=== PATIENT | male | born 1980 | race Caucasian/White ===

== ENCOUNTER 2017-10-21 10:18 | Inpatient (IN) | payer MEDICAID ==
[2017-10-21] MEDS ORDERED: Sodium Chloride 0.9% 1,000 ML IV ONE (10:50)
--- NOTE | 2017-10-21 10:59 | ED Physician Chart ---
ED Chief Complaint/HPI - Patient Information Date Seen:: 10/21/17 Time Seen:: 10:30 Chief Complaint:: Left Foot Pain History of Present Illness:: onset x 3 days of left foot pain, paresthesias, redness, and swelling around a non-healing wound; pt's last tetanus shot: > 5 years; hx of IDDM; pt denies H/As , S/T, neck pain, C/P, SOB, Abd. pain,A/N/V/D/C, fever, chills, or urinary s/s Allergies:: Allergies Allergy/AdvReac Type Severity Reaction Status Date / Time No Known Allergies Allergy Verified 10/21/17 10:34 Vitals:: Vital Signs - 8 hr 10/21/17 10:39 Temp 98.4 F HR 101 RR 16 BP 147/103 O2 Sat % 100 Historian:: Patient Review:: Nurse's Note Reviewed ED Review of Systems - Review of Systems General/Constitutional: No fever, No chills, No weight loss, No weakness, No diaphoresis, No edema, No loss of appetite Skin: Skin lesions, No rash, No bruising Head: No headache, No light-headedness Eyes: No loss of vision, No pain, No diplopia ENT: No earache, No nasal drainage, No sore throat, No tinnitus Neck: No neck pain, No swelling, No thyromegaly, No stiffness, No mass noted Cardio Vascular: No chest pain, No palpitations, No PND, No orthopnea, No edema Pulmonary: No SOB, No cough, No sputum, No wheezing GI: No nausea, No vomiting, No diarrhea, No pain, No melena, No hematochezia, No constipation, No hematemesis G/U: No dysuria, No frequency, No hematuria, No nacturia Musculoskeletal: No bone or joint pain, No back pain, No muscle pain Endocrine: Polyuria, Polydipsia Psychiatric: No prior psych history, No depression, No anxiety, No suicidal ideation, No homicidal ideation, No auditory hallucination, No visual hallucination Hematopoietic: No bruising, No lymphadenopathy Allergic/Immuno: No urticaria, No angioedema Neurological: No syncope, No focal symptoms, No weakness, No paresthesia, No headache, No seizure, No dizziness, No confusion, No vertigo ED Past Medical History - Past Medical History Obtainable: Yes Past Medical History: DM Family History: Diabetes Melitus, HTN Social History: Non Smoker, No Alcohol, No Drug Use, Single Surgical History: None Psychiatricy History: None Medication: Reviewed Family Medical History - Family Member Mother History Unknown: Yes ED Physical Exam - Physical Examination General/Constitutional: Awake, Well-developed, well-nourished, Alert, No distress, GCS 15, Non-toxic appearing, Ambulatory Head: Atraumatic Eyes: Lids, conjuctiva normal, PERRL, EOMI Skin: Nl inspection, No rash, No skin lesions, No ecchymosis, Well hydrated, No lymphadenopathy Other Skin comments:: Left Foot Wound and Cellulitis ENMT: External ears, nose nl, TM canals nl, Nasal exam nl, Lips, teeth, gums nl , Oropharynx nl, Tonsils nl Neck: Nontender, Full ROM w/o pain, No JVD, No nuchal rigidity, No bruit, No mass, No stridor Respiratory: Nl effort/Exclusion, Clear to Auscultation, No Wheeze/Rhonchi/Rales Cardio Vascular: RRR, No murmur, gallop, rubs, NL S1 S2, Carotid/Femoral/Distal pulses equal bilaterally GI: No tenderness/rebounding/guarding, No organomegaly, No hernia, Normal BS's, Nondistended, No mass/bruits, No McBurney tenderness : No CVA tenderness Extremities: No tenderness or effusion, Full ROM, normal strength in all extremities, No edema, Normal digits & nails Neuro/Psych: Alert/oriented, DTR's symmetric, Normal sensory exam, Normal motor strength, Judgement/insight normal, Mood normal, Normal gait, No focal deficits Misc: Normal back, No paraspinal tenderness ED Labs/Radiology/EKG Results - Lab Results Comments:: WBC: 11.8; Na+: 125; Glucose: 269 - EKG Interpretations EKG Time:: 10:55 Rate & Rhythm: 89; NSR Comments:: non-specific st-t changes ED Septic Shock - . Is Septic Shock (SBP<90, OR Lactate>4 mmol\L) present?: No - <6hrs of presentation: Vital Signs: Vital Signs - 8 hr 10/21/ 10:39 Temp 98.4 F HR 101 RR 16 BP 147/103 O2 Sat % 100 ED Reassessment (Disposition) - Reassessment Reassessment Condition:: Improved - Diagnosis Diagnosis:: Dx: Left Foot Wound; Cellulitis; DM; Hyponatremia; Sepsis; Leukocytosis; Hyperglycemia - Aftercare/Follow up Instructions Aftercare/Follow-Up Instructions:: Counseled pt regarding lab results/diagnosis & need follow up, Counseled pt & family regarding lab results/diagnosis & need follow up - Patient Disposition Discharge/Transfer:: Acute Care w/in this hosp Accepting Physician:: Dr. Russ Time Called:: 1215 Time Responded:: 12:15 Admitted to:: Med/Surg Spoke to:: Dr. Russ Admitting Medical Physician:: Dr. Russ Condition at Disposition:: Stable, Improved
[2017-10-21 11:13] LABS: % EOSINOPHILS 1.8 % (0.0-5.0); % LYMPHOCYTES 34.6 % (20.0-50.0); % MONOCYTES 4.2 % (2.0-10.0); % NEUTROPHILS 59.4 % (40.0-80.0); EOSINOPHILE ABSOLUTE 0.2 Th/cmm (0.1-0.4); HEMOGLOBIN 15.6 gm/dL (12-16); LYMPHOCYTE ABSOLUTE 4.1 Th/cmm (1.5-3.0); MEAN CELL VOLUME 87.7 fl (80-99); MEAN CORPUSCULAR HGB CONC 33.1 pg (28.0-36.0); MEAN PLATELET VOLUME 9.2 fl; MONOCYTE ABSOLUTE 0.5 Th/cmm (0.3-1.0); PLATELET COUNT 508 Th/cmm (150-400); RED BLOOD COUNT 5.36 Mil/cmm (4.30-5.70); RED CELL DISTRIBUTION WIDTH 12.6 % (11.5-20.0); WHITE BLOOD COUNT 11.8 Th/cmm (4.8-10.8)
[2017-10-21 11:28] LABS: INR 1.09 (0.5-1.4); PROTHROMBIN TIME (TEST) 11.4 SECONDS (9.5-11.5)
[2017-10-21 11:32] LABS: ALB/GLOB RATIO 1.4 (1.0-1.8); ALBUMIN 5.1 gm/dL (4.2-5.5); ALKALINE PHOSPHATASE 84 U/L (34-104); ANION GAP 10.6 (7.0-16.0); BILIRUBIN,TOTAL 0.8 mg/dL (0.3-1.0); BUN - UREA NITROGEN 16 mg/dL (7-25); CALCIUM SERUM 10.6 mg/dL (8.6-10.3); CHLORIDE 91 mEq/L (98-107); CREATININE - SERUM 0.9 mg/dL (0.7-1.3); CREATININE KINASE 148 U/L (30-223); GFR AFRICAN-AMERICAN > 60.0 ml/min (>90); GFR NON AFRICAN-AMERICAN > 60.0 ml/min; GLUCOSE 269 mg/dL (70-105); POTASSIUM SERUM 3.6 mEq/L (3.5-5.1); SGOT 17 U/L (13-39); SGPT/ALT 19 U/L (7-52); SODIUM SERUM 125 mEq/L (136-145); TOTAL PROTEIN,SERUM 8.8 gm/dL (6.0-8.3)
[2017-10-21 11:41] LABS: TROP I < 0.01 ng/mL (0.01-0.05)
[2017-10-21 12:27] LABS: URINE MICROSCOPIC INDICATED? YES; URINE SOURCE MIDSTREAM
[2017-10-21 12:31] LABS: URINE BILIRUBIN NEGATIVE (NEGATIVE); URINE BLOOD NEGATIVE (NEGATIVE); URINE GLUCOSE (UA) 250 mg/dL (NEGATIVE); URINE KETONE NEGATIVE (NEGATIVE); URINE LEUKOCYTE ESTERASE NEGATIVE (NEGATIVE); URINE NITRATE NEGATIVE (NEGATIVE); URINE PROTEIN NEGATIVE (NEGATIVE); URINE UROBILINOGEN 0.2 E.U./dL (0.2 - 1.0)
[2017-10-21 12:34] LABS: URINE CLARITY HAZY (CLEAR); URINE COLOR YELLOW
[2017-10-21 12:35] LABS: URINE BACTERIA NONE SEEN /hpf (NONE SEEN); URINE EPITHELIAL CELLS FEW /lpf (FEW); URINE RBC 0-2 /hpf (0-5); URINE WBC 0-2 /hpf (0-5)
[2017-10-21] MEDS: INSULIN ASPART SLIDING SCALE 100 UNITS/ML UNIT SUBQ SCH ×2 (17:03→21:30)
[2017-10-21 19:53] LABS: A1C % 8.1 % (4.0-6.0)
[2017-10-22] MEDS: INSULIN ASPART SLIDING SCALE 100 UNITS/ML UNIT SUBQ SCH ×4 (08:00→21:27)
[2017-10-22 08:58] LABS: HEMOGLOBIN 14.4 gm/dL (12-16); MEAN CELL VOLUME 86.4 fl (80-99); MEAN CORPUSCULAR HGB CONC 33.6 pg (28.0-36.0); MEAN PLATELET VOLUME 9.2 fl; PLATELET COUNT 412 Th/cmm (150-400); RED BLOOD COUNT 4.98 Mil/cmm (4.30-5.70); RED CELL DISTRIBUTION WIDTH 12.9 % (11.5-20.0); WHITE BLOOD COUNT 8.4 Th/cmm (4.8-10.8)
[2017-10-22] MEDS: Sodium Chloride 0.9% 1,000 ML IV SCH (08:58)
--- NOTE | 2017-10-22 08:59 | History and Physical ---
History of Present Illness - HPI Chief Complaint: Ulcer in left foot HPI: Patient refer that few weeks he had a blister that became an ulcer. He had debridament one week ago at [facility], he went ago but he noticed that surrounding area became red again, he decided to come to ER for Evaluation. Vital Signs: Last Vital Signs Temp 96.7 F 10/22/17 04:00 Pulse 77 10/22/17 04:00 Resp 20 10/22/17 04:00 BP 103/68 10/22/17 04:00 Pulse Ox 96 10/22/17 04:00 Past Medical History Pulmonary: Report: No Pertinent Hx [employer]: Report: No Pertinent Hx GI: Report: No Pertinent Hx Psych: Report: No Pertinent Hx Musculoskeletal: Report: No Pertinent Hx Rheumatologic: Report: No pertinent Hx Infectious Disease: Report: Other (Cellulitis in left foot) Renal/: Report: No Pertinent Hx Endocrine: Report: Diabetes Dermatology: Report: Cellulitis Family Medical History - Family Member Mother History Unknown: Yes Social History Smoke: No Alcohol: None Drugs: None Lives: With Family Domestic Violence: Negative - Medications Home Medications: Home Medication Medication Instructions Recorded Type Clindamycin HCl [Cleocin HCl*] 1 tab PO TID 10/21/17 History metFORMIN [Glucophage] 850 mg PO BID 10/21/17 History - Allergies Allergies/Adverse Reactions: Allergies Allergy/AdvReac Type Severity Reaction Status Date / Time No Known Allergies Allergy Verified 10/21/17 10:34 Review of Systems - Review of Systems Constitutional: Report: Fever Eyes: Report: No Significant ENT: Report: No Significant Respiratory: Report: No Significant Cardiovascular: Report: No Significant Gastrointestinal: Report: No Significant Genitourinary: Report: No Significant Musculoskeletal: Report: No Significant Skin: Report: Other (There is a 2x3 com in anterior area of left foot.) Neurological: Report: No Significant Physical Exam - Physical Exam HEENT: Report: Ears Nose Throat within normal limits Neck: Report: Within normal limits Cardiovascular Systems: Report: Regular, Rate and Rhythm Respiratory: Report: Breath Sounds are within normal limits Abdomen: Report: Non-tender to palpation Back: Report: Inspection of back is within normal limits. Extremities: Report: Other (2x3 cm ulcer in anterior area of left foot) Skin: Report: Other (Ulcer in left foot) Neuro/Psych: Report: Mood affect is within normal limits - Lab Results All Lab Results last 24 hours: Laboratory Results - last 24 hr 10/21/17 10/21/17 10/22/17 16:39 20:41 06:06 POC Glucose 268 H 163 H 131 H - Assessment Assessment: Patient is awake, alert, calm, in no acute distress. DX: Foot ulcer and cellulites, DM - Plan Plan: Patient is in IV NS, Insulin sliding scale, Vanco and zosyn will be added.
[2017-10-22 09:13] LABS: ALB/GLOB RATIO 1.5 (1.0-1.8); ALBUMIN 4.3 gm/dL (4.2-5.5); ALKALINE PHOSPHATASE 63 U/L (34-104); ANION GAP 11.4 (7.0-16.0); BILIRUBIN,TOTAL 0.5 mg/dL (0.3-1.0); BUN - UREA NITROGEN 20 mg/dL (7-25); CALCIUM SERUM 9.9 mg/dL (8.6-10.3); CARBON DIOXIDE 27.2 mEq/L (21.0-31.0); CHLORIDE 104 mEq/L (98-107); CREATININE - SERUM 0.9 mg/dL (0.7-1.3); GFR AFRICAN-AMERICAN > 60.0 ml/min (>90); GFR NON AFRICAN-AMERICAN > 60.0 ml/min; POTASSIUM SERUM 4.6 mEq/L (3.5-5.1); SGOT 13 U/L (13-39); SGPT/ALT 15 U/L (7-52); TOTAL PROTEIN,SERUM 7.2 gm/dL (6.0-8.3)
[2017-10-22 09:20] LABS: SODIUM SERUM 138 mEq/L (136-145)
[2017-10-22 09:21] LABS: GLUCOSE 132 mg/dL (70-105)
[2017-10-22 09:50] LABS: LYMPHOCYTE 45 % (20-50); NEUTROPHILS 34 % (40-80); TOTAL CELLS COUNTED 100
[2017-10-22 09:51] LABS: ATYPICAL LYMPH 14 %; EOSINOPHIL 2 % (0-5); MONOCYTE 5 % (2-10); PLATELET ESTIMATE ADEQUATE (NORMAL)
[2017-10-23] MEDS: Sodium Chloride 0.9% 1,000 ML IV SCH ×2 (05:24→20:24)
[2017-10-23 05:46] LABS: % BASOPHILS 0.7 % (0.0-2.0); % EOSINOPHILS 4.8 % (0.0-5.0); % LYMPHOCYTES 47.9 % (20.0-50.0); % MONOCYTES 5.4 % (2.0-10.0); % NEUTROPHILS 41.2 % (40.0-80.0); BASOPHILE ABSOLUTE 0.1 Th/cumm (0-0.2); EOSINOPHILE ABSOLUTE 0.4 Th/cmm (0.1-0.4); HEMOGLOBIN 13.3 gm/dL (12-16); LYMPHOCYTE ABSOLUTE 4.3 Th/cmm (1.5-3.0); MEAN CELL VOLUME 85.7 fl (80-99); MEAN CORPUSCULAR HEMOGLOBIN 29.1 pg (26.0-30.0); MEAN PLATELET VOLUME 9.3 fl; MONOCYTE ABSOLUTE 0.5 Th/cmm (0.3-1.0); NEUTROPHILE ABSOLUTE 3.7 Th/cmm (1.8-8.0); PLATELET COUNT 402 Th/cmm (150-400); RED BLOOD COUNT 4.55 Mil/cmm (4.30-5.70); RED CELL DISTRIBUTION WIDTH 12.8 % (11.5-20.0)
[2017-10-23 06:15] LABS: ALB/GLOB RATIO 1.4 (1.0-1.8); ALBUMIN 3.7 gm/dL (4.2-5.5); ALKALINE PHOSPHATASE 57 U/L (34-104); ANION GAP 9.3 (7.0-16.0); BILIRUBIN,TOTAL 0.5 mg/dL (0.3-1.0); BUN - UREA NITROGEN 16 mg/dL (7-25); CALCIUM SERUM 9.3 mg/dL (8.6-10.3); CARBON DIOXIDE 27.8 mEq/L (21.0-31.0); CHLORIDE 104 mEq/L (98-107); CREATININE - SERUM 0.8 mg/dL (0.7-1.3); GFR AFRICAN-AMERICAN > 60.0 ml/min (>90); GFR NON AFRICAN-AMERICAN > 60.0 ml/min; GLUCOSE 184 mg/dL (70-105); POTASSIUM SERUM 4.1 mEq/L (3.5-5.1); SGOT 10 U/L (13-39); SGPT/ALT 11 U/L (7-52); SODIUM SERUM 137 mEq/L (136-145); TOTAL PROTEIN,SERUM 6.4 gm/dL (6.0-8.3)
--- NOTE | 2017-10-23 07:59 | General Progress Note ---
Subjective - Review of Systems Service Date: 10/23/17 Subjective: I am better Objective - Results Result Diagrams: 10/23/17 05:05 10/23/17 05:05 Recent Labs: Laboratory Last Values WBC 9.0 Th/cmm (4.8-10.8) 10/23/17 05:05 RBC 4.55 Mil/cmm (4.30-5.70) 10/23/17 05:05 Hgb 13.3 gm/dL (12-16) 10/23/17 05:05 Hct 39.0 % (41.0-60) L 10/23/17 05:05 MCV 85.7 fl (80-99) 10/23/17 05:05 MCH 29.1 pg (26.0-30.0) 10/23/17 05:05 MCHC Differential 34.0 pg (28.0-36.0) 10/23/17 05:05 RDW 12.8 % (11.5-20.0) 10/23/17 05:05 Plt Count 402 Th/cmm (150-400) H 10/23/17 05:05 MPV 9.3 fl 10/23/17 05:05 Neutrophils % 41.2 % (40.0-80.0) 10/23/17 05:05 Lymphocytes % 47.9 % (20.0-50.0) 10/23/17 05:05 Monocytes % 5.4 % (2.0-10.0) 10/23/17 05:05 Eosinophils % 4.8 % (0.0-5.0) 10/23/17 05:05 Basophils % 0.7 % (0.0-2.0) 10/23/17 05:05 Neutrophils (Manual) 34 % (40-80) L 10/22/17 08:00 Lymphocytes 45 % (20-50) 10/22/17 08:00 Monocytes 5 % (2-10) 10/22/17 08:00 Eosinophils 2 % (0-5) 10/22/17 08:00 Atypical Lymphocytes 14 % 10/22/17 08:00 Platelet Estimate ADEQUATE (NORMAL) 10/22/17 08:00 PT 11.4 SECONDS (9.5-11.5) 10/21/17 10:45 INR 1.09 (0.5-1.4) 10/21/17 10:45 PTT (Actin FS) 28.6 SECONDS (26.0-38.0) 10/21/17 10:45 Sodium 137 mEq/L (136-145) 10/23/17 05:05 Potassium 4.1 mEq/L (3.5-5.1) 10/23/17 05:05 Chloride 104 mEq/L (98-107) 10/23/17 05:05 Carbon Dioxide 27.8 mEq/L (21.0-31.0) 10/23/17 05:05 Anion Gap 9.3 (7.0-16.0) 10/23/17 05:05 BUN 16 mg/dL (7-25) 10/23/17 05:05 Creatinine 0.8 mg/dL (0.7-1.3) 10/23/17 05:05 Est GFR ( Amer) > 60.0 ml/min (>90) 10/23/17 05:05 Est GFR (Non-Af Amer) > 60.0 ml/min 10/23/17 05:05 BUN/Creatinine Ratio 20.0 10/23/17 05:05 Glucose 184 mg/dL (70-105) H 10/23/17 05:05 POC Glucose 180 MG/DL (70 - 105) H 10/23/17 05:28 Hemoglobin A1c % 8.1 % (4.0-6.0) H 10/21/17 10:45 Whole Bld Lactic Acid 1.04 mmol/L (0.60-1.99) 10/21/17 10:45 Calcium 9.3 mg/dL (8.6-10.3) 10/23/17 05:05 Total Bilirubin 0.5 mg/dL (0.3-1.0) 10/23/17 05:05 AST 10 U/L (13-39) L 10/23/17 05:05 ALT 11 U/L (7-52) 10/23/17 05:05 Alkaline Phosphatase 57 U/L (34-104) 10/23/17 05:05 Creatine Kinase 148 U/L (30-223) 10/21/17 10:45 Troponin I < 0.01 ng/mL (0.01-0.05) L 10/21/17 10:45 Total Protein 6.4 gm/dL (6.0-8.3) 10/23/17 05:05 Albumin 3.7 gm/dL (4.2-5.5) L 10/23/17 05:05 Globulin 2.7 gm/dL 10/23/17 05:05 Albumin/Globulin Ratio 1.4 (1.0-1.8) 10/23/17 05:05 TSH 1.37 uIU/ml (0.34-5.60) 10/22/17 08:00 Urine Source MIDSTREAM 10/21/17 12:20 Urine Color YELLOW 10/21/17 12:20 Urine Clarity HAZY (CLEAR) 10/21/17 12:20 Urine pH 6.0 (4.6 - 8.0) 10/21/17 12:20 Ur Specific [place] <= 1.005 (1.005-1.030) 10/21/17 12:20 Urine Protein NEGATIVE mg/dL (NEGATIVE) 10/21/17 12:20 Urine Glucose (UA) 250 mg/dL (NEGATIVE) H 10/21/17 12:20 Urine Ketones NEGATIVE mg/dL (NEGATIVE) 10/21/17 12:20 Urine Blood NEGATIVE (NEGATIVE) 10/21/17 12:20 Urine Nitrate NEGATIVE (NEGATIVE) 10/21/17 12:20 Urine Bilirubin NEGATIVE (NEGATIVE) 10/21/17 12:20 Urine Urobilinogen 0.2 E.U./dL (0.2 - 1.0) 10/21/17 12:20 Ur Leukocyte Esterase NEGATIVE (NEGATIVE) 10/21/17 12:20 Urine RBC 0-2 /hpf (0-5) H 10/21/17 12:20 Urine WBC 0-2 /hpf (0-5) 10/21/17 12:20 Ur Epithelial Cells FEW /lpf (FEW) 10/21/17 12:20 Urine Bacteria NONE SEEN /hpf (NONE SEEN) 10/21/17 12:20 Vancomycin Trough 11.3 ug/mL (10-20) 10/22/17 08:00 - Physical Exam Vitals and I&O: Vital Signs Temp 97.0 F 10/23/17 04:00 Pulse 77 10/23/17 04:00 Resp 18 10/23/17 04:00 BP 118/67 10/23/17 04:00 Pulse Ox 98 10/23/17 04:00 Intake & Output 10/22/17 10/23/17 10/23/17 18:59 06:59 18:59 Intake Total 2150 108.333 Balance 2150 108.333 Weight (lbs) 74.843 kg Intake: Intake, IV Amount 1350 108.333 Piperacillin Sodium/ 100 50 Tazobact 3.375 gm In Sodium Chloride 0.9% 50 ml @ 100 mls/hr IV Q6HR [facility] Rx#:[id number] Sodium Chloride 0.9% 1, 1000 58.333 000 ml @ 100 mls/hr IV . Q10H [facility] Rx#:[id number] Vancomycin HCl 1.25 gm In 250 Sodium Chloride 0.9% 250 ml @ 165 mls/hr IV Q12H [facility] Rx#:[id number] Oral 800 Other: # Voids 5 Active Medications: Current Medications Acetaminophen (Tylenol) 650 mg PO Q6H PRN PRN Reason: Pain or Fever >101 Stop: 12/20/17 15:25 [place] Oil/[place] Balsam/Trypsin (Venelex) 1 appl TP DAILY [facility] Stop: 12/22/17 09:59 Vancomycin HCl 1.25 gm/ Sodium (Chloride) 250 mls @ 165 mls/hr IV Q12H [facility] Stop: 12/20/17 20:59 Last Admin: 10/22/17 21:48 Dose: 165 mls/hr Sodium Chloride (Nacl 0.9%) 1,000 mls @ 100 mls/hr IV .Q10H [facility] Stop: 12/20/17 19:50 Last Infusion: 10/23/17 05:59 Dose: 100 mls/hr Piperacillin Sod/Tazobactam (Sod 3.375 gm/ Sodium Chloride) 50 mls @ 100 mls/ hr IV Q6HR [facility] Stop: 12/21/17 11:59 Last Admin: 10/23/17 05:24 Dose: 100 mls/hr Insulin Aspart (Novolog Insulin Sliding Scale) 0 units SUBQ ACHS [facility] PRN Reason: Protocol Stop: 12/20/17 16:29 Last Admin: 10/22/17 21:27 Dose: 2 units Metformin HCl (Glucophage) 850 mg PO BID [facility] Stop: 12/20/17 16:59 Last Admin: 10/22/17 18:15 Dose: 850 mg Miscellaneous (Vancomycin Iv Per Pharmacy) 1 ea MC DAILY [facility] Stop: 12/20/17 15:59 General: Alert, Oriented x3, Cooperative, No acute distress HEENT: Atraumatic Neck: Supple Cardiovascular: Regular rate Lungs: Clear to auscultation Abdomen: Bowel sounds, Soft Extremities: Other (2x3 ulcer in anterion area of left leg, redness improving.) Neurological: Normal gait Skin: Other (Ulcer in left foot) Psych/Mental Status: Mental status NL Assessment/Plan - Assessment Assessment: Patient is awake, alert, calm, in no acute distress. DX: Foot ulcer and cellulites, DM. - Plan Plan: Patient is in IV NS, Insulin sliding scale, Vanco and zosyn. Will continue to monitor. Nutritional Asmnt/Malnutr-PDOC - Dietary Evaluation Malnutrition Findings (Please click <Entered> for more info): Nutritional Asmnt/Malnutrition Start: 10/22/17 14: 29 Text: Status: Complete Freq: Document 10/22/17 14:29 JEANCARLOSG (Rec: 10/22/17 14:48 [email or web address] Nutritional Asmnt/Malnutrition Patient General Information Nutritional Screening High Risk Diagnosis cellulitis, uncontrol DM, hyponatremia Pertinent Medical Hx/Surgical Hx DM. cellulitis Subjective Information BS 269 at admitting noted. Pt seen sitting on bed, awake and alert. Pt reported appetite was ok as usually. Observed PO intake 100% of lunch. Current Diet Order/ Nutrition Support CCHO 60gm Pertinent Medications novolog, glucophage, piperacillin, nacl 0.9%, vancomycin. Pertinent Labs 10/22 glucose 132, POC 131-186 10/21 glucose 269, A1c 8.1, POC 163-268 Nutritional Hx/Data Height 1.68 m Height (Calculated Centimeters) 167.6 Current Weight (lbs) 74.843 kg Weight (Calculated Kilograms) 74.8 Weight (Calculated Grams) 15096.7 [place] Body Weight 142 Body Mass Index (BMI) 26.6 Weight Status Overweight GI Symptoms GI Symptoms None Last BM 10/21 Difficult in: None Usual diet at home no diet restrictions at home Skin Integrity/Comment: left foot wound pressure area reddened to left foot Current %PO Good (75-100%) Estimated Nutritional Goals BEE in Kcals: Adj wt of IBW Calories/Kcals/Kg 25-30 Kcals Calculated Protein: Adj wt of IBW Protein g/k-1.2 Protein Calculated 67-80 Fluid: ml 1675-2010ml (1ml/kcal) Nutritional Problem 1. Problem Problem altered nutrition related labs Etiology hx of DM, not following therapeutic diet Signs/Symptoms: 10/22 glucose 132-269, POC 131- 268, A1c 8.1 Malnutrition Alert Protein-Calorie Malnutrition N/A Is there a minimum of two criteria No selected? Query Text:Check all the applicable criteria. A minimum of two criteria are recommended for diagnosis of either severe or non-severe malnutrition. Intervention/Recommendation Comments 1. Continue with [facility] 60gm diet as ordered. Nutrition education about diabetes provided. Pt showed interested . 2. Monitor PO intake, wt, labs and skin integrity 3. F/U as moderate risk in 3-5 days, 10/25-10/27 Expected Outcomes/Goals Expected Outcomes/Goals 1. PO intake to meet at least 75% of nutritional needs. 2. Wt stability, skin to remain intact, labs to approach WNL.
[2017-10-23] MEDS: INSULIN ASPART SLIDING SCALE 100 UNITS/ML UNIT SUBQ SCH ×4 (08:06→20:27)
[2017-10-23] MEDS: Venelex 60gm Tube TP SCH (17:11)
[2017-10-24 06:24] LABS: HEMATOCRIT 38.3 % (41.0-60); HEMOGLOBIN 12.9 gm/dL (12-16); MEAN CELL VOLUME 87.4 fl (80-99); MEAN CORPUSCULAR HEMOGLOBIN 29.3 pg (26.0-30.0); MEAN CORPUSCULAR HGB CONC 33.6 pg (28.0-36.0); MEAN PLATELET VOLUME 8.6 fl; PLATELET COUNT 368 Th/cmm (150-400); RED BLOOD COUNT 4.38 Mil/cmm (4.30-5.70); RED CELL DISTRIBUTION WIDTH 12.7 % (11.5-20.0); WHITE BLOOD COUNT 9.1 Th/cmm (4.8-10.8)
[2017-10-24 07:00] LABS: ALB/GLOB RATIO 1.5 (1.0-1.8); ALBUMIN 3.8 gm/dL (4.2-5.5); ALKALINE PHOSPHATASE 65 U/L (34-104); ANION GAP 8.4 (7.0-16.0); BILIRUBIN,TOTAL 0.4 mg/dL (0.3-1.0); BUN - UREA NITROGEN 15 mg/dL (7-25); CALCIUM SERUM 9.3 mg/dL (8.6-10.3); CARBON DIOXIDE 26.9 mEq/L (21.0-31.0); CHLORIDE 106 mEq/L (98-107); CREATININE - SERUM 0.7 mg/dL (0.7-1.3); GFR AFRICAN-AMERICAN > 60.0 ml/min (>90); GFR NON AFRICAN-AMERICAN > 60.0 ml/min; GLUCOSE 188 mg/dL (70-105); POTASSIUM SERUM 4.3 mEq/L (3.5-5.1); SGOT 9 U/L (13-39); SGPT/ALT 10 U/L (7-52); SODIUM SERUM 137 mEq/L (136-145); TOTAL PROTEIN,SERUM 6.4 gm/dL (6.0-8.3)
[2017-10-24] MEDS: INSULIN ASPART SLIDING SCALE 100 UNITS/ML UNIT SUBQ SCH (08:24)
[2017-10-24 08:34] LABS: ATYPICAL LYMPH 10 %; BASOPHIL 1 % (0-3); EOSINOPHIL 5 % (0-5); LYMPHOCYTE 45 % (20-50); MONOCYTE 3 % (2-10); NEUTROPHILS 36 % (40-80); PLATELET ESTIMATE ADEQUATE (NORMAL); TOTAL CELLS COUNTED 100
--- NOTE | 2017-10-24 10:06 | Discharge Summary ---
General Discharge Summary - Discharge Summary Date of Admission: 10/21/17 Admitting Diagnosis: Foot ulcer, Cellulites, DM Discharge Date: 10/24/17 Discharge Diagnosis: Foot ulcer, Cellulites, DM Laboratory Findings: Laboratory Results - last 24 hr 10/23/17 10/23/17 10/23/17 11:20 16:58 20:22 WBC RBC Hgb Hct MCV MCH MCHC Differential RDW Plt Count MPV Neutrophils (Manual) Lymphocytes Monocytes Eosinophils Basophils Atypical Lymphocytes Platelet Estimate Sodium Potassium Chloride Carbon Dioxide Anion Gap BUN Creatinine Est GFR ( Amer) Est GFR (Non-Af Amer) BUN/Creatinine Ratio Glucose POC Glucose 230 H 168 H 278 H Calcium Total Bilirubin AST ALT Alkaline Phosphatase Total Protein Albumin Globulin Albumin/Globulin Ratio 10/24/17 10/24/17 10/24/17 05:31 06:00 06:00 WBC 9.1 RBC 4.38 Hgb 12.9 Hct 38.3 L MCV 87.4 MCH 29.3 MCHC Differential 33.6 RDW 12.7 Plt Count 368 MPV 8.6 Neutrophils (Manual) 36 L Lymphocytes 45 Monocytes 3 Eosinophils 5 Basophils 1 Atypical Lymphocytes 10 Platelet Estimate ADEQUATE Sodium 137 Potassium 4.3 Chloride 106 Carbon Dioxide 26.9 Anion Gap 8.4 BUN 15 Creatinine 0.7 Est GFR ( Amer) > 60.0 Est GFR (Non-Af Amer) > 60.0 BUN/Creatinine Ratio 21.4 Glucose 188 H POC Glucose 174 H Calcium 9.3 Total Bilirubin 0.4 AST 9 L ALT 10 Alkaline Phosphatase 65 Total Protein 6.4 Albumin 3.8 L Globulin 2.6 Albumin/Globulin Ratio 1.5 Hospital Course: Patient responded to antibiotics Treatment: IV NS, Vanco, Sozyn, Insulin sliding scale. Condition at Discharge: Stable Disposition: PT DISCHARGED HOME Home Medications: Home Medication Medication Instructions Recorded Type Clindamycin HCl [Cleocin HCl*] 1 tab PO TID 10/21/17 History metFORMIN [Glucophage] 850 mg PO BID 10/21/17 History Inpatient Medications: Current Medications Acetaminophen (Tylenol) 650 mg PO Q6H PRN PRN Reason: Pain or Fever >101 Stop: 12/20/17 15:25 [place] Oil/[place]rian Balsam/Trypsin (Venelex) 1 appl TP DAILY [facility] Stop: 12/22/17 09:59 Last Admin: 10/23/17 17:11 Dose: 1 appl Vancomycin HCl 1.25 gm/ Sodium (Chloride) 250 mls @ 165 mls/hr IV Q12H [facility] Stop: 12/20/17 20:59 Last Admin: 10/23/17 20:23 Dose: 165 mls/hr Sodium Chloride (Nacl 0.9%) 1,000 mls @ 100 mls/hr IV .Q10H [facility] Stop: 12/20/17 19:50 Last Admin: 10/23/17 20:24 Dose: 100 mls/hr Piperacillin Sod/Tazobactam (Sod 3.375 gm/ Sodium Chloride) 50 mls @ 100 mls/ hr IV Q6HR [facility] Stop: 12/21/17 11:59 Last Admin: 10/24/17 05:25 Dose: 100 mls/hr Insulin Aspart (Novolog Insulin Sliding Scale) 0 units SUBQ ACHS [facility] PRN Reason: Protocol Stop: 12/20/17 16:29 Last Admin: 10/24/17 08:24 Dose: 2 units Metformin HCl (Glucophage) 850 mg PO BID [facility] Stop: 12/20/17 16:59 Last Admin: 10/23/17 17:11 Dose: 850 mg Miscellaneous (Vancomycin Iv Per Pharmacy) 1 ea MC DAILY [facility] Stop: 12/20/17 15:59 Activity: As Tolerated Discharge Diet: 2 Gram Sodium Consults and Follow-Up: not on staff,PCP is [Primary Care Provider] - Consulting Speciality: Other (PCP)
[2017-10-24] MEDS: Venelex 60gm Tube TP SCH (10:12)
== END 2017-10-24 12:01 | disposition home or self-care (01) | DRG 720 ==
LOC: ER 10:18 → MSI 13:35
PROVIDERS: ADMIT General Practice; ATTEND General Practice
DX: A41.9 Sepsis, unspecified organism (principal); E11.621 Type 2 diabetes mellitus with foot ulcer; L03.116 Cellulitis of left lower limb; E11.65 Type 2 diabetes mellitus with hyperglycemia; L97.509 Non-pressure chronic ulcer of other part of unspecified foot with unspecified severity; I10 Essential (primary) hypertension; E87.1 Hypo-osmolality and hyponatremia; Z83.3 Family history of diabetes mellitus; Z82.49 Family history of ischemic heart disease and other diseases of the circulatory system
CPT/HCPCS: 36415-UA; 80053-TC; 80202-TC; 81001-TC; 82550-TC; 82948-90; 83036-90; 83605; 84443-TC; 84484-TC; 85007-TC; 85025-TC; 85027-TC; 85610-TC; 85730-TC; 93005; J1815; J2543; J3370; J7030

== ENCOUNTER 2019-03-15 21:13 | Emergency (ER) | payer MEDICAID ==
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
== END 2019-03-15 23:53 | disposition home or self-care (01) ==
LOC: ER 21:13
DX: L30.9 Dermatitis, unspecified (principal); F17.200 Nicotine dependence, unspecified, uncomplicated